=== PATIENT | female | born 1985 | race African-American/Black ===

== ENCOUNTER 2017-04-05 15:16 | Emergency (ER) | payer SELFPAY ==
[2017-04-05] MEDS ORDERED: Metoclopramide HCl 10 MG/2 ML VIAL ONE (18:24)
[2017-04-05] MEDS ORDERED: Dexamethasone 4 mg/ml Vial ONE (18:24)
[2017-04-05] MEDS ORDERED: diphenhydrAMINE 50 MG/ML VIAL ONE (18:24)
[2017-04-05] MEDS ORDERED: Ketorolac Tromethamine 30 MG/ML VIAL ONE (18:24)
--- NOTE | 2017-04-05 18:39 | CT ---
CT BRAIN WITHOUT CONTRAST: History: Headache, photophobia. FINDINGS: No evidence of infarct, hemorrhage, midline shift or abnormal extraaxial fluid collections are seen. The ventricular size is normal and the basilar cisterns patent. The bony calvarium is intact. The lef t paranasal sinus and mastoid air cells are well aerated. IMPRESSION: No CT evidence of acute intracranial process. POS: [facility]
== END 2017-04-05 19:30 | disposition home or self-care (01) ==
LOC: ERS 15:16
DX: R51 Headache (principal); I10 Essential (primary) hypertension; F17.210 Nicotine dependence, cigarettes, uncomplicated
CPT/HCPCS: 70450; 96365; 96375; J1100; J1200; J1885; J2765

== ENCOUNTER 2019-02-17 15:32 | Inpatient (IN) | payer SELFPAY ==
[~2019-02-17 15:32] MED LIST: Ketorolac Tromethamine 30 MG/ML VIAL ONE; Labetalol HCl 100 MG/20 ML VIAL ONE; Lidocaine 1% PF 5 ML VIAL ONE; Ondansetron PF 4 MG/2 ML Vial ONE; PROPOFOL 200 MG/20 ML VIAL ONE; Succinylcholine Chloride 20 MG/ML 10 ml SYRINGE FS ONE
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
[2019-02-17] MEDS ORDERED: Morphine 4 MG/ML VIAL ONE (17:25)
[2019-02-17] MEDS ORDERED: Adacel (T-DAP) 0.5 ML SYRINGE ONE (17:25)
[2019-02-17 17:51] LABS: #Monocytes 0.8 thou/uL (0.11-0.59); #Neutrophils 8.7 thou/uL (1.40-6.50); %Basophils 0.1 % (0.0-1.0); %Eosinophils 0.2 % (0.0-10.0); %Lymphocytes 23.9 % (21.0-51.0); %Monocytes 6.4 % (0.0-10.0); %Neutrophils 69.4 % (42.0-75.0); Hemoglobin 13.6 g/dL (12.0-16.0); Mean Corpuscular HGB CONC 34.1 g/dL (32.0-36.0); Mean Corpuscular Hemoglobin 29.7 pg (27.0-31.0); Mean Corpuscular Volume 87.1 fL (78.0-98.0); Mean Platelet Volume 11.1 fL (7.4-10.4); Platelet Count 190 thou/uL (130-400); RBC Distribution Width 12.9 % (11.5-14.5); Red Blood Cell (RBC) Count 4.59 mill/uL (4.20-5.40); White Blood Cell (WBC) Count 12.5 thou/uL (4.8-10.8)
[2019-02-17] MEDS ORDERED: Ampicillin/Sulbactam 1.5 GM in Sodium Chloride 0.9% 100 ML IVPB SCH (18:00)
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
[2019-02-17 18:28] LABS: ALT (SGPT) 89 U/L (8-55); AST (SGOT) 73 U/L (5-34); Albumin 4.3 g/dL (3.5-5.0); Alkaline Phosphatase 87 U/L (40-110); Anion Gap 13 mmol/L (10-20); BUN (Urea Nitrogen) 7 mg/dL (7.0-18.7); Bilirubin, Total 0.6 mg/dL (0.2-1.2); CRP (Inflammatory) 1.44 mg/dL (= or < 0.5); Calc. Creatinine Clearance 0 mL/min (70-130); Calcium 9.6 mg/dL (7.8-10.44); Carbon Dioxide 27 mmol/L (22-29); Chloride 102 mmol/L (98-107); Estimated GFR-MDRD Greater than 90; Globulin 4.3 g/dL (2.4-3.5); Glucose 105 mg/dL (70-105); Potassium 3.1 mmol/L (3.5-5.1); Protein, Total 8.6 g/dL (6.0-8.3); Sodium 139 mmol/L (136-145)
[2019-02-17] MEDS ORDERED: hydrALAZINE 20 MG/ML VIAL ONE (19:21)
[2019-02-17] MEDS ORDERED: Promethazine HCl 25 MG/ML VIAL SLOW IVP PRN (19:39)
[2019-02-17] MEDS ORDERED: Ondansetron HCl/PF 4 MG/2 ML Vial IVP PRN (19:39)
[2019-02-17] MEDS ORDERED: Promethazine HCl 25 MG/ML VIAL IM PRN ×2 (19:39→21:50)
[2019-02-17] MEDS ORDERED: Fentanyl 100 MCG/2 ML VIAL ONE ×2 (19:41→21:02)
[2019-02-17] MEDS ORDERED: Ondansetron PF 4 MG/2 ML Vial IVP PRN (21:50)
[2019-02-17] MEDS ORDERED: Fentanyl 100 MCG/2 ML VIAL SLOW IVP PRN (21:50)
[2019-02-17] MEDS ORDERED: HYDROcodone/Acetaminophen 5/325 mg Tablet PO PRN ×2 (21:50)
[2019-02-17] MEDS ORDERED: Morphine 2 MG/ML SYRINGE SLOW IVP PRN (21:50)
[2019-02-17] MEDS ORDERED: traMADol HCl 50 MG TAB PO PRN ×2 (21:50)
[2019-02-17] MEDS ORDERED: Bisacodyl 10 MG SUPP PR PRN (21:50)
[2019-02-17] MEDS ORDERED: TETANUS AND DIPHTHERIA TOX/PF 0.5 ML DISP.SYRIN IM SCH (21:50)
[2019-02-17] MEDS ORDERED: Acetaminophen 325 MG TAB PO PRN (21:50)
[2019-02-17] MEDS ORDERED: Milk Of Magnesia 30 ML UDCUP PO PRN (21:50)
[2019-02-17] MEDS ORDERED: hydrALAZINE 20 MG/ML VIAL SLOW IVP PRN (21:54)
[2019-02-17] MEDS: Morphine 4 MG/ML VIAL SLOW IVP PRN (22:34)
[2019-02-17] MEDS: Ketorolac Tromethamine 30 MG/ML VIAL IVP SCH (23:35)
[2019-02-17] MEDS: Ampicillin/Sulbactam 3 GM, Admixture Fee 1 EACH in Sodium Chloride 0.9% 100 ML IVPB SCH (23:36)
[2019-02-18 00:49] VITALS: BMI 38.8
[2019-02-18] MEDS: Ketorolac Tromethamine 30 MG/ML VIAL IVP SCH ×4 (05:50→23:21)
[2019-02-18] MEDS: Ampicillin/Sulbactam 3 GM, Admixture Fee 1 EACH in Sodium Chloride 0.9% 100 ML IVPB SCH ×3 (05:51→18:30)
[2019-02-18 08:53] LABS: Anion Gap 15 mmol/L (10-20); BUN (Urea Nitrogen) 5 mg/dL (7.0-18.7); Calc. Creatinine Clearance 172 mL/min (70-130); Calcium 8.8 mg/dL (7.8-10.44); Carbon Dioxide 23 mmol/L (22-29); Chloride 105 mmol/L (98-107); Estimated GFR-MDRD Greater than 90; Glucose 90 mg/dL (70-105); Magnesium 1.8 mg/dL (1.6-2.6); Potassium 3.6 mmol/L (3.5-5.1); Sodium 139 mmol/L (136-145)
[2019-02-18] MEDS: Lisinopril 10 MG TAB PO SCH ×2 (08:54→21:12)
[2019-02-18] MEDS ORDERED: Amoxicillin/Potassium Clav 875 MG TAB PO SCH (09:00)
[2019-02-18] MEDS ORDERED: NIFEdipine XL 30 MG TAB PO SCH (09:00)
[2019-02-18] MEDS: cloNIDine 0.1 MG TAB PO PRN ×2 (12:41→23:22)
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
[2019-02-18] MEDS: Morphine 4 MG/ML VIAL SLOW IVP PRN (16:33)
[2019-02-18] MEDS ORDERED: Polyethylene Glycol 3350 17 GM Packet PO PRN (16:51)
[2019-02-18] MEDS: Senokot S 8.6-50 MG TAB PO SCH (21:10)
[2019-02-18] MEDS: NIFEdipine XL 30 MG TAB PO SCH (21:10)
--- NOTE | 2019-02-19 06:27 | PDOC.HOSPP ---
- Subjective Encounter Date: 02/18/19 Encounter Time: 14:00 Subjective: Patient seen and examined for med mngt. Med noncompliant. No CP/SOB. No new complaints. No overnight events - Objective Vital Signs & Weight: Vital Signs (12 hours) Temp Pulse Resp BP BP BP Pulse Ox 02/19/19 03:19 98.3 F 67 16 157/84 H 96 02/19/19 00:30 153/87 H 02/18/19 23:22 194/94 H 02/18/19 23:16 98.5 F 71 16 194/94 H 97 02/18/19 21:12 195/102 H 02/18/19 21:10 69 02/18/19 20:30 98.6 F 69 16 189/91 H 99 Weight Weight 212 lb 8 oz I&O: 02/17/19 02/18/19 02/19/19 06:59 06:59 06:59 Intake Total 460 780 Balance 460 780 Result Diagrams: 02/17/19 17:30 02/18/19 07:28 Additional Labs: Laboratory Tests 02/17/19 17:30 Potassium 3.1 L Hospitalist ROS - Review of Systems Respiratory: denies: cough, dry, shortness of breath, hemoptysis, SOB with excertion, pleuritic pain, sputum, wheezing, other Cardiovascular: denies: chest pain, palpitations, orthopnea, paroxysmal noc. dyspnea, edema, light headedness, other - Medication Medications: Active Medications Generic Name Dose Route Start Last Admin Trade Name Freq PRN Reason Stop Dose Admin Hydrocodone Bitart/Acetaminophen 2 tab 02/17/19 21:50 02/19/19 06:03 [place] 5/325 PO 2 tab Q4H PRN Administration Severe Pain (7-10) Clonidine 0.1 mg 02/18/19 08:15 02/18/19 23:22 Catapres PO 0.1 mg Q4H PRN Administration SBP Greater Than 180 Hydralazine HCl 10 mg 02/17/19 21:54 02/17/19 23:47 Apresoline SLOW IVP 10 mg Q4H PRN Administration SBP Greater Than 180 Morphine Sulfate 4 mg 02/17/19 21:50 02/18/19 16:33 Morphine SLOW IVP 4 mg Q2H PRN Administration Severe Pain (7-10) Nifedipine 30 mg 02/18/19 21:00 02/18/19 21:10 Procardia Xl PO 30 mg BID MIAH Administration Promethazine HCl 12.5 mg 02/17/19 21:50 02/18/19 20:06 Phenergan IM 12.5 mg Q4H PRN Administration Nausea Senna/Docusate Sodium 1 tab 02/18/19 21:00 02/18/19 21:10 Senokot S PO 1 tab BID MIAH Administration Sodium Chloride 10 ml 02/17/19 21:50 02/18/19 16:36 Flush - Normal Saline IVF 10 ml PRN PRN Administration Saline Flush - Exam General Appearance: NAD Neck: supple, no JVD Heart: RRR, no gallops, no rubs Respiratory: no wheezes, no rales, no ronchi Gastrointestinal: soft, non-tender, normal bowel sounds Extremities: no edema Hosp A/P - Plan DVT proph w/SCDs HTN - uncontrolled Obesity BMI 38.9 Hypokalemia Med noncompliant PLAN: Add Procardia XL Add Lisinopril HCTZ Clonidine PRN Urine drug screen Counselled on med compliance/lifestyle changes Consult CM for med assist Will follow
[2019-02-19 07:16] LABS: Amphetamine Not Detected (NotDetected); Barbiturates Screen Not Detected (NotDetected); Benzodiazepine Screen Not Detected (NotDetected); Cocaine Metabolite Screen Not Detected (NotDetected); Medtox Control Line Valid? VALID (VALID); Medtox Reader # READER 4; Methadone Not Detected (NotDetected); Methamphetamine Not Detected (NotDetected); Opiate Screen Not Detected (NotDetected); Oxycodone Screen Not Detected (NotDetected); Phencyclidine (PCP) Not Detected (NotDetected); THC/Cannabinoid Screen Detected (NotDetected); Tricyclic Screen Not Detected (NotDetected)
[2019-02-19 07:42] VITALS: TEMP 98.1
[2019-02-19] MEDS: Senokot S 8.6-50 MG TAB PO SCH (08:01)
[2019-02-19] MEDS: NIFEdipine XL 30 MG TAB PO SCH (08:02)
[2019-02-19] MEDS ORDERED: Amoxicillin/Potassium Clav 875 MG TAB PO SCH (09:00)
[2019-02-19] MEDS ORDERED: Lisinopril/Hydrochlorothiazide 20/25 mg Tablet PO SCH (09:00)
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
[2019-02-19] MEDS: Morphine 4 MG/ML VIAL SLOW IVP PRN (10:33)
[2019-02-19 12:05] VITALS: BP 137/80
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
== END 2019-02-19 12:12 | disposition home or self-care (01) | DRG 514 ==
LOC: ERS 15:32 → SDC/OP 20:47 → SURG B 21:18
PROVIDERS: ADMIT Orthopaedic Surgery; ATTEND Orthopaedic Surgery
PROC: 0L970ZZ Drainage of Right Hand Tendon, Open Approach (ICD-10-PCS; principal; 2019-02-17)
DX: M65.141 Other infective (teno)synovitis, right hand (principal); S61.252A Open bite of right middle finger without damage to nail, initial encounter; Y04.1XXA Assault by human bite, initial encounter; I10 Essential (primary) hypertension; F17.200 Nicotine dependence, unspecified, uncomplicated; Z79.899 Other long term (current) drug therapy
CPT/HCPCS: 36415; 80048; 80053; 80306; 83735; 85025; 85652; 86140; 87070; 87077; 87186; 87205; 90471; 90715; 93005; 96365; 96375; J0295; J0360; J1885; J2001; J2270; J2405; J2550; J2704; J3010; J3490

== ENCOUNTER 2019-08-27 10:40 | Emergency (ER) | payer SELFPAY ==
[2019-08-27] MEDS ORDERED: Lidocaine 1% PF 5 ML VIAL ONE (10:55)
[2019-08-27] MEDS ORDERED: Azithromycin 250 MG TAB ONE (10:55)
[2019-08-27] MEDS ORDERED: cefTRIAXone\\ROCEPHIN 250 MG VIAL ONE (10:55)
== END 2019-08-27 12:33 | disposition home or self-care (01) ==
LOC: ER/OP 10:40
DX: Z79.2 Long term (current) use of antibiotics (principal); A64 Unspecified sexually transmitted disease
CPT/HCPCS: 96372; J0696; J2001

== ENCOUNTER 2020-08-03 10:34 | Emergency (ER) | payer OTHER, SELFPAY ==
[2020-08-03] MEDS ORDERED: cloNIDine 0.1 MG TAB ONE (11:05)
[2020-08-03] MEDS ORDERED: Ketorolac Tromethamine 30 MG/ML VIAL ONE (11:05)
== END 2020-08-03 10:48 | disposition home or self-care (01) ==
LOC: ERS 10:34
DX: S39.012A Strain of muscle, fascia and tendon of lower back, initial encounter (principal); I10 Essential (primary) hypertension; F17.210 Nicotine dependence, cigarettes, uncomplicated; V89.2XXA Person injured in unspecified motor-vehicle accident, traffic, initial encounter
CPT/HCPCS: 96372; 99283; J1885

== ENCOUNTER 2021-05-04 18:35 | Inpatient (IN) | payer SELFPAY ==
[2021-05-04 19:13] LABS: #Basophils 0.1 thou/uL (0.0-0.2); #Monocytes 0.8 thou/uL (0.11-0.59); #Neutrophils 6.2 thou/uL (1.40-6.50); %Basophils 0.9 % (0.0-1.0); %Eosinophils 0.3 % (0.0-10.0); %Lymphocytes 22.2 % (21.0-51.0); %Monocytes 8.7 % (0.0-10.0); Hemoglobin 13.4 g/dL (12.0-16.0); Mean Corpuscular HGB CONC 32.9 g/dL (32.0-36.0); Mean Corpuscular Hemoglobin 28.8 pg (27.0-31.0); Mean Corpuscular Volume 87.4 fL (78.0-98.0); RBC Distribution Width 12.9 % (11.5-14.5); Red Blood Cell (RBC) Count 4.65 mill/uL (4.20-5.40)
[2021-05-04 19:26] LABS: BHCG - Serum Negative (NEGATIVE); Pregs Control Background? CLEAR/WHITE (CLR/WHITE); Pregs Control Bar Appear? YES (CONTROL BAR)
[2021-05-04 19:30] LABS: ALT (SGPT) 9 U/L (8-55); AST (SGOT) 20 U/L (5-34); Albumin 4.5 g/dL (3.5-5.0); Alkaline Phosphatase 75 U/L (40-110); Anion Gap 17 mmol/L (10-20); BUN (Urea Nitrogen) 11 mg/dL (7.0-18.7); Calc. Creatinine Clearance 0 mL/min (70-130); Calcium 10.1 mg/dL (7.8-10.44); Carbon Dioxide 25 mmol/L (22-29); Chloride 100 mmol/L (98-107); Globulin 5.1 g/dL (2.4-3.5); Glucose 90 mg/dL (70-105); Lipase 22 U/L (8-78); Protein, Total 9.6 g/dL (6.0-8.3); Sodium 139 mmol/L (136-145)
[2021-05-04 19:34] LABS: Potassium 2.7 mmol/L (3.5-5.1)
[2021-05-04 19:49] LABS: CKMB 1.3 ng/mL (0-6.6)
[2021-05-04 19:51] LABS: Large Platelets SLIGHT; MDiff Complete? YES; Platelet Count 134 thou/uL (130-400); Platelet Morphology Comment Appears Adequate; RBC Morphology Normal
[2021-05-04] MEDS ORDERED: niCARdipine 25 MG/10 ML VIAL ONE ×3 (19:53→23:45)
[2021-05-04] MEDS ORDERED: Potassium Chloride 20 MEQ TAB ONE (19:53)
[2021-05-04] MEDS ORDERED: Magnesium 2 GM/50 ML BAG (IN WATER) ONE (19:53)
[2021-05-04 20:48] LABS: Bacteria/HPF None Seen HPF (None Seen); Bilirubin Negative (Negative); Blood, Urine Negative (Negative); Clarity Clear (Clear); Glucose, Urine (Dipstick) Normal (Negative); Ketone, Urine Negative (Negative); Leukocyte Negative Leu/uL (Negative); Nitrite Negative (Negative); Protein, Urine (Dipstick) 30 mg/dL (Neg-Trace); RBC/HPF 0-3 HPF (0-3); Specific Gravity, Urine 1.004 (1.002-1.036); Squamous Epithelial 0-3 HPF (0-3); Urobilinogen Normal mg/dL (Less than 2); WBC/HPF 0-3 HPF (0-3); pH, Urine 6.5 (5.0-9.0)
[2021-05-04] MEDS ORDERED: Labetalol HCl 100 MG/20 ML VIAL ONE (23:17)
[2021-05-04] MEDS ORDERED: Labetalol HCl 100 MG/20 ML VIAL SLOW IVP PRN (23:43)
[2021-05-04] MEDS ORDERED: Acetaminophen 325 MG TAB PO PRN (23:43)
[2021-05-04] MEDS ORDERED: Dextrose 50% Abboject 50 ML SYRINGE SLOW IVP PRN (23:54)
[2021-05-04] MEDS ORDERED: Dextrose 5% in Water 1,000 ML IV PRN (23:54)
[2021-05-04] MEDS ORDERED: HumaLOG 300 UNITS/3 ML VIAL SC PRN ×2 (23:54)
[2021-05-05 00:32] LABS: Troponin I 0.238 ng/mL (< 0.028)
[2021-05-05] MEDS ORDERED: niCARdipine 25 MG/10 ML VIAL ONE (04:41)
[2021-05-05 06:18] LABS: Anion Gap 16 mmol/L (10-20); BUN (Urea Nitrogen) 8 mg/dL (7.0-18.7); Calc. Creatinine Clearance 0 mL/min (70-130); Calcium 9.5 mg/dL (7.8-10.44); Carbon Dioxide 23 mmol/L (22-29); Chloride 104 mmol/L (98-107); Cholesterol 196 mg/dl (< 200 Desired); Glucose 133 mg/dL (70-105); HDL Cholesterol 39 mg/dL (>60 Neg Risk); Hemoglobin A1c 5.1 % (4.0-6.0); LDL Cholesterol, Calculated 140 mg/dL; Magnesium 1.9 mg/dL (1.6-2.6); Sodium 140 mmol/L (136-145); Triglycerides 85 mg/dL (Less than 150)
[2021-05-05] MEDS: Famotidine 20 MG TAB PO SCH ×2 (08:50→20:53)
[2021-05-05] MEDS: niCARdipine 25 MG in Sodium Chloride 0.9% 250 ML 250 ML IVPB SCH ×4 (08:50→18:44)
[2021-05-05] MEDS: Enoxaparin Sodium 40 MG/0.4 ML SYRINGE SC SCH (08:50)
[2021-05-05 08:55] LABS: Troponin I 0.091 ng/mL (< 0.028)
[2021-05-05 09:14] VITALS: BMI 32.3
[2021-05-05 09:56] LABS: #Basophils 0.1 thou/uL (0.0-0.2); #Lymphocytes 1.8 thou/uL (1.20-3.40); #Monocytes 0.7 thou/uL (0.11-0.59); #Neutrophils 6.7 thou/uL (1.40-6.50); %Basophils 0.8 % (0.0-1.0); %Eosinophils 0.3 % (0.0-10.0); %Lymphocytes 19.4 % (21.0-51.0); %Monocytes 7.2 % (0.0-10.0); %Neutrophils 72.3 % (42.0-75.0); Large Platelets MODERATE; MDiff Complete? YES; Mean Corpuscular HGB CONC 34.4 g/dL (32.0-36.0); Mean Corpuscular Hemoglobin 30.1 pg (27.0-31.0); Mean Corpuscular Volume 87.3 fL (78.0-98.0); Mean Platelet Volume 11.8 fL (7.4-10.4); Platelet Count 122 thou/uL (130-400); Platelet Morphology Comment Appears Decreased; Polychromasia SLIGHT = 2-3 cells (100X) (0-2/hpf); RBC Distribution Width 13.1 % (11.5-14.5); Red Blood Cell (RBC) Count 4.33 mill/uL (4.20-5.40); White Blood Cell (WBC) Count 9.3 thou/uL (4.8-10.8)
[2021-05-05] MEDS ORDERED: Potassium Chloride 20 MEQ TAB PO SCH (10:00)
[2021-05-05] MEDS ORDERED: Lisinopril 10 MG TAB PO SCH (10:15)
[2021-05-05] MEDS ORDERED: Carvedilol 6.25 MG TAB PO SCH ×2 (10:15→21:00)
[2021-05-05] MEDS ORDERED: NIFEdipine XL 30 MG TAB PO SCH ×2 (10:15→21:00)
[2021-05-05] MEDS ORDERED: Ondansetron PF 4 MG/2 ML Vial IVP PRN (10:44)
[2021-05-05] MEDS ORDERED: Cepastat Lozenges 1 LOZ PO PRN (10:44)
[2021-05-05] MEDS ORDERED: GUAIFENESIN SF SOLN 200 MG/10 ML UDCUP PO PRN (10:44)
[2021-05-05] MEDS ORDERED: Ondansetron ODT 4 MG TAB PO PRN (10:44)
[2021-05-05] MEDS ORDERED: Calcium Carbonate 500 MG ChewTAB PO PRN (10:44)
[2021-05-05] MEDS ORDERED: Zolpidem Tartrate 5 MG TAB PO PRN (10:44)
[2021-05-05] MEDS ORDERED: Loperamide HCl 2 MG CAP PO PRN (10:44)
[2021-05-05] MEDS ORDERED: HYDROcodone/Acetaminophen 5/325 mg Tablet PO PRN (10:44)
[2021-05-05] MEDS ORDERED: Loratadine 10 MG TAB PO PRN (10:44)
[2021-05-05] MEDS ORDERED: Senokot S 8.6-50 MG TAB PO PRN (10:44)
[2021-05-05 10:56] LABS: Amphetamine Not Detected (NotDetected); Barbiturates Screen Not Detected (NotDetected); Benzodiazepine Screen Not Detected (NotDetected); Cocaine Metabolite Screen Not Detected (NotDetected); Methadone Not Detected (NotDetected); Methamphetamine Not Detected (NotDetected); Opiate Screen Not Detected (NotDetected); Oxycodone Screen Not Detected (NotDetected); Phencyclidine (PCP) Not Detected (NotDetected); THC/Cannabinoid Screen Detected (NotDetected); Tricyclic Screen Not Detected (NotDetected)
[2021-05-05] MEDS ORDERED: Magnevist 469MG/ML 20 ML VIAL ONE (10:59)
[2021-05-05 14:41] LABS: SARS-CoV-2 PCR by NAA Not Detected (NotDetected)
[2021-05-06] MEDS: niCARdipine 25 MG in Sodium Chloride 0.9% 250 ML 250 ML IVPB SCH ×2 (00:28→03:09)
[2021-05-06 04:24] LABS: #Lymphocytes 1.9 thou/uL (1.20-3.40); #Monocytes 0.6 thou/uL (0.11-0.59); #Neutrophils 6.3 thou/uL (1.40-6.50); %Basophils 0.2 % (0.0-1.0); %Eosinophils 0.5 % (0.0-10.0); %Lymphocytes 21.5 % (21.0-51.0); %Monocytes 6.8 % (0.0-10.0); %Neutrophils 71.1 % (42.0-75.0); Hemoglobin 14.6 g/dL (12.0-16.0); Mean Corpuscular HGB CONC 33.5 g/dL (32.0-36.0); Mean Corpuscular Hemoglobin 29.1 pg (27.0-31.0); Mean Platelet Volume 11.1 fL (7.4-10.4); Platelet Count 140 thou/uL (130-400); Platelet Morphology Comment Appears Adequate; RBC Distribution Width 13.1 % (11.5-14.5); RBC Morphology Normal; Red Blood Cell (RBC) Count 5.02 mill/uL (4.20-5.40); White Blood Cell (WBC) Count 8.8 thou/uL (4.8-10.8)
[2021-05-06 04:31] LABS: Anion Gap 11 mmol/L (10-20); BUN (Urea Nitrogen) 8 mg/dL (7.0-18.7); Calc. Creatinine Clearance 87 mL/min (70-130); Calcium 9.7 mg/dL (7.8-10.44); Carbon Dioxide 26 mmol/L (22-29); Chloride 104 mmol/L (98-107); Cholesterol 215 mg/dl (< 200 Desired); Glucose 107 mg/dL (70-105); HDL Cholesterol 36 mg/dL (>60 Neg Risk); LDL Cholesterol, Calculated 154 mg/dL; Magnesium 1.7 mg/dL (1.6-2.6); Sodium 138 mmol/L (136-145); Triglycerides 124 mg/dL (Less than 150)
[2021-05-06 05:36] LABS: Hemoglobin A1c 5.1 % (4.0-6.0)
[2021-05-06] MEDS ORDERED: niCARdipine 50 MG in Sodium Chloride 0.9% 250 ML 230 ML IVPB SCH (06:45)
[2021-05-06] MEDS: Famotidine 20 MG TAB PO SCH ×2 (08:23→20:13)
[2021-05-06] MEDS: Enoxaparin Sodium 40 MG/0.4 ML SYRINGE SC SCH (08:24)
[2021-05-06] MEDS ORDERED: Potassium Chloride 20 MEQ TAB PO SCH (08:30)
[2021-05-06] MEDS: Labetalol HCl 100 MG/20 ML VIAL SLOW IVP PRN ×4 (08:34→17:48)
[2021-05-06] MEDS ORDERED: Lisinopril 10 MG TAB PO SCH ×2 (09:00→09:15)
[2021-05-06] MEDS ORDERED: Amlodipine 10 MG TAB PO SCH (09:15)
[2021-05-06] MEDS: hydrALAZINE 20 MG/ML VIAL SLOW IVP PRN (13:32)
[2021-05-07] MEDS: Labetalol HCl 100 MG/20 ML VIAL SLOW IVP PRN ×3 (04:40→08:44)
[2021-05-07 05:33] LABS: #Lymphocytes 1.5 thou/uL (1.20-3.40); #Monocytes 0.8 thou/uL (0.11-0.59); #Neutrophils 5.7 thou/uL (1.40-6.50); %Basophils 0.1 % (0.0-1.0); %Eosinophils 0.1 % (0.0-10.0); %Monocytes 9.9 % (0.0-10.0); %Neutrophils 70.8 % (42.0-75.0); Hemoglobin 12.3 g/dL (12.0-16.0); Mean Corpuscular Hemoglobin 28.7 pg (27.0-31.0); Mean Corpuscular Volume 89.9 fL (78.0-98.0); Mean Platelet Volume 11.3 fL (7.4-10.4); Platelet Count 137 thou/uL (130-400); RBC Distribution Width 13.2 % (11.5-14.5); Red Blood Cell (RBC) Count 4.26 mill/uL (4.20-5.40)
[2021-05-07 05:44] LABS: Anion Gap 14 mmol/L (10-20); BUN (Urea Nitrogen) 13 mg/dL (7.0-18.7); Calc. Creatinine Clearance 83 mL/min (70-130); Calcium 9.5 mg/dL (7.8-10.44); Carbon Dioxide 22 mmol/L (22-29); Chloride 104 mmol/L (98-107); Glucose 108 mg/dL (70-105); Magnesium 1.6 mg/dL (1.6-2.6); Potassium 3.1 mmol/L (3.5-5.1); Sodium 137 mmol/L (136-145)
[2021-05-07] MEDS ORDERED: Potassium Chloride 20 MEQ TAB PO SCH (07:30)
[2021-05-07] MEDS: Lisinopril 10 MG TAB PO SCH (08:43)
[2021-05-07] MEDS: Amlodipine 10 MG TAB PO SCH (08:43)
[2021-05-07] MEDS: Famotidine 20 MG TAB PO SCH ×2 (08:43→20:10)
[2021-05-07] MEDS: Enoxaparin Sodium 40 MG/0.4 ML SYRINGE SC SCH (08:44)
[2021-05-07] MEDS ORDERED: Spironolactone 25 MG TAB PO SCH (10:45)
[2021-05-07] MEDS ORDERED: Carvedilol 6.25 MG TAB PO SCH ×2 (10:45)
[2021-05-07] MEDS: Carvedilol 6.25 MG TAB PO SCH (20:10)
[2021-05-07] MEDS: hydrALAZINE 20 MG/ML VIAL SLOW IVP PRN (23:50)
[2021-05-08] MEDS: Lisinopril 10 MG TAB PO SCH (08:17)
[2021-05-08] MEDS: Enoxaparin Sodium 40 MG/0.4 ML SYRINGE SC SCH (08:17)
[2021-05-08] MEDS: Carvedilol 6.25 MG TAB PO SCH ×2 (08:18→21:36)
[2021-05-08] MEDS: Amlodipine 10 MG TAB PO SCH (08:18)
[2021-05-08] MEDS: Spironolactone 25 MG TAB PO SCH (08:18)
[2021-05-08] MEDS: Famotidine 20 MG TAB PO SCH ×2 (08:18→21:36)
[2021-05-08] MEDS: Labetalol HCl 100 MG/20 ML VIAL SLOW IVP PRN (11:33)
[2021-05-08] MEDS: hydrALAZINE 20 MG/ML VIAL SLOW IVP PRN ×2 (15:55→23:13)
[2021-05-09 08:00] VITALS: BP 191/99; TEMP 98.5
[2021-05-09] MEDS ORDERED: Carvedilol 6.25 MG TAB PO SCH (08:00)
[2021-05-09] MEDS: Spironolactone 25 MG TAB PO SCH (08:11)
[2021-05-09] MEDS: Famotidine 20 MG TAB PO SCH (08:11)
[2021-05-09] MEDS: Enoxaparin Sodium 40 MG/0.4 ML SYRINGE SC SCH (08:11)
[2021-05-09] MEDS ORDERED: NIFEdipine XL 30 MG TAB PO SCH (09:00)
[2021-05-09] MEDS ORDERED: hydrALAZINE 25 MG TAB PO SCH (09:00)
[2021-05-09] MEDS ORDERED: Lisinopril 20 MG TAB PO SCH (09:00)
[2021-05-11 16:16] LABS: Renin Activity 0.867 ng/mL/hr (0.167-5.380)
== END 2021-05-09 10:30 | disposition home or self-care (01) | DRG 280 ==
LOC: ERS 18:35 → CCU 23:16 → NEURO 05-06 17:32
PROVIDERS: ADMIT Internal Medicine; ATTEND Internal Medicine
DX: I16.1 Hypertensive emergency (principal); I67.83 Posterior reversible encephalopathy syndrome; I21.A1 Myocardial infarction type 2; N17.9 Acute kidney failure, unspecified; R93.0 Abnormal findings on diagnostic imaging of skull and head, not elsewhere classified; E87.6 Hypokalemia; I10 Essential (primary) hypertension; E11.9 Type 2 diabetes mellitus without complications; E66.9 Obesity, unspecified; F17.210 Nicotine dependence, cigarettes, uncomplicated; Z20.822 Contact with and (suspected) exposure to COVID-19; Z79.899 Other long term (current) drug therapy; Z98.890 Other specified postprocedural states; Z91.14 Patient's other noncompliance with medication regimen; Z68.31 Body mass index [BMI] 31.0-31.9, adult
CPT/HCPCS: 36415; 36416; 70450; 70553; 71045; 80048; 80053; 80061; 80306; 81003; 81015; 82088; 82553; 83036; 83690; 83735; 84244; 84443; 84484; 84703; 85025; 93005; 93306; 94760; A9579; J0360; J1650; J3475; J7050; U0003; U0005

== ENCOUNTER 2021-07-26 13:48 | Emergency (ER) | payer SELFPAY | END 2021-07-26 15:39 | disposition home or self-care (01) | LOC: ERS 13:48 | DX: G51.0 Bell's palsy (principal); F17.210 Nicotine dependence, cigarettes, uncomplicated; Z79.899 Other long term (current) drug therapy | CPT/HCPCS: 99284 ==

== ENCOUNTER 2021-10-12 13:05 | Emergency (ER) | payer SELFPAY ==
[2021-10-12] MEDS ORDERED: Nitroglycerin 2% Ointment 1 INCH/1 GM Packet ONE (13:43)
[2021-10-12] MEDS ORDERED: Ondansetron ODT 4 MG TAB ONE (13:50)
[2021-10-12] MEDS ORDERED: niCARdipine 25 MG/10 ML VIAL ONE (14:06)
[2021-10-12 14:22] LABS: #Lymphocytes 1.6 thou/uL (1.20-3.40); #Monocytes 0.6 thou/uL (0.11-0.59); #Neutrophils 9.6 thou/uL (1.40-6.50); %Basophils 0.1 % (0.0-1.0); %Lymphocytes 13.3 % (21.0-51.0); %Monocytes 5.1 % (0.0-10.0); %Neutrophils 81.5 % (42.0-75.0); BHCG - Serum Negative (NEGATIVE); Hemoglobin 14.5 g/dL (12.0-16.0); Mean Corpuscular HGB CONC 32.8 g/dL (32.0-36.0); Mean Corpuscular Hemoglobin 29.3 pg (27.0-31.0); Mean Corpuscular Volume 89.1 fL (78.0-98.0); Mean Platelet Volume 11.6 fL (7.4-10.4); Platelet Count 159 thou/uL (130-400); Pregs Control Background? CLEAR/WHITE (CLR/WHITE); Pregs Control Bar Appear? YES (CONTROL BAR); RBC Distribution Width 14.8 % (11.5-14.5); Red Blood Cell (RBC) Count 4.95 mill/uL (4.20-5.40); White Blood Cell (WBC) Count 11.8 thou/uL (4.8-10.8)
[2021-10-12 14:33] LABS: ALT (SGPT) 12 U/L (8-55); AST (SGOT) 21 U/L (5-34); Albumin 4.6 g/dL (3.5-5.0); Alkaline Phosphatase 87 U/L (40-110); Anion Gap 17 mmol/L (10-20); BUN (Urea Nitrogen) 10 mg/dL (7.0-18.7); Bilirubin, Total 1.2 mg/dL (0.2-1.2); Calc. Creatinine Clearance 0 mL/min (70-130); Calcium 10.1 mg/dL (7.8-10.44); Carbon Dioxide 22 mmol/L (22-29); Chloride 105 mmol/L (98-107); Estimated GFR 54; Glucose 164 mg/dL (70-105); Lipase 14 U/L (8-78); Protein, Total 9.6 g/dL (6.0-8.3); Sodium 141 mmol/L (136-145)
[2021-10-12 15:06] LABS: Bacteria/HPF None Seen HPF (None Seen); Bilirubin Negative (Negative); Blood, Urine 1+ (Negative); Clarity Clear (Clear); Glucose, Urine (Dipstick) 100 mg/dL (Negative); Ketone, Urine 20 mg/dL (Negative); Leukocyte Negative Leu/uL (Negative); Nitrite Negative (Negative); Protein, Urine (Dipstick) 200 mg/dL (Neg-Trace); RBC/HPF 0-3 HPF (0-3); Squamous Epithelial 0-3 HPF (0-3); Urobilinogen Normal mg/dL (Less than 2); WBC/HPF 0-3 HPF (0-3); pH, Urine 6.5 (5.0-9.0)
[2021-10-12 15:23] LABS: SARS-CoV-2 NAA Rapid Test Not Detected (NotDetected)
[2021-10-12] MEDS ORDERED: Ondansetron PF 4 MG/2 ML Vial ONE (16:53)
== END 2021-10-12 17:33 | disposition short-term general hospital (02) ==
LOC: ERS 13:05
DX: I16.1 Hypertensive emergency (principal); Z20.822 Contact with and (suspected) exposure to COVID-19; E11.9 Type 2 diabetes mellitus without complications; F17.210 Nicotine dependence, cigarettes, uncomplicated; Z79.899 Other long term (current) drug therapy
CPT/HCPCS: 70450; 71045; 80053; 81003; 81015; 83690; 84484; 84703; 85025; 93005; J2405; Q0162; U0002

== ENCOUNTER 2022-02-08 14:58 | Inpatient (IN) | payer SELFPAY ==
[~2022-02-08 14:58] MED LIST changes: +Iopamidol-370 76% 500 ML 1 ML ONE; -Ketorolac Tromethamine 30 MG/ML VIAL ONE; -Labetalol HCl 100 MG/20 ML VIAL ONE; -Lidocaine 1% PF 5 ML VIAL ONE; -Ondansetron PF 4 MG/2 ML Vial ONE; -PROPOFOL 200 MG/20 ML VIAL ONE; -Succinylcholine Chloride 20 MG/ML 10 ml SYRINGE FS ONE
[2022-02-08] MEDS ORDERED: Lorazepam 2 MG/ML VIAL ONE ×2 (15:18→15:35)
[2022-02-08] MEDS ORDERED: niCARdipine 25 MG/10 ML VIAL ONE ×3 (16:08→21:11)
[2022-02-08] MEDS ORDERED: levETIRAcetam 500 MG/5 ML VIAL ONE (16:19)
[2022-02-08 16:35] LABS: #Lymphocytes 0.8 thou/uL (1.20-3.40); #Monocytes 0.3 thou/uL (0.11-0.59); #Neutrophils 11.5 thou/uL (1.40-6.50); %Basophils 0.2 % (0.0-1.0); %Eosinophils 0.2 % (0.0-10.0); %Lymphocytes 6.5 % (21.0-51.0); %Neutrophils 91.1 % (42.0-75.0); Hemoglobin 13.8 g/dL (12.0-16.0); Mean Corpuscular HGB CONC 32.3 g/dL (32.0-36.0); Mean Corpuscular Hemoglobin 29.3 pg (27.0-31.0); Mean Corpuscular Volume 90.9 fl (78.0-98.0); Mean Platelet Volume 11.5 fL (7.4-10.4); Platelet Count 154 10x3/uL (130-400); RBC Distribution Width 13.7 % (11.5-14.5); Red Blood Cell (RBC) Count 4.69 mill/uL (4.20-5.40); White Blood Cell (WBC) Count 12.6 10x3/uL (4.8-10.8)
[2022-02-08 16:36] LABS: BHCG - Serum Negative (NEGATIVE); Pregs Control Bar Appear? YES (CONTROL BAR)
[2022-02-08 16:37] LABS: Pregs Control Background? CLEAR/WHITE (CLR/WHITE)
[2022-02-08 16:42] LABS: PTT 39.3 sec (22.9-36.1); Prothrombin Time 13.6 sec (12.0-14.7)
[2022-02-08 16:49] LABS: Acetaminophen Less than 10.0 mcg/mL (10.0-30.0); Alcohol Less than 10 mg/dL (Less than 10); Salicylate Less than 8.0 mg/dL (15.0-30.0)
[2022-02-08 16:50] LABS: ALT (SGPT) 25 U/L (8-55); AST (SGOT) 32 U/L (5-34); Albumin 4.2 g/dL (3.5-5.0); Alkaline Phosphatase 102 U/L (40-110); Anion Gap 17 mmol/L (10-20); BUN (Urea Nitrogen) 13 mg/dL (7.0-18.7); Bilirubin, Total 1.5 mg/dL (0.2-1.2); CK (CPK) 103 U/L (29-168); Calc. Creatinine Clearance 0 mL/min (70-130); Calcium 9.8 mg/dL (7.8-10.44); Carbon Dioxide 22 mmol/L (22-29); Chloride 100 mmol/L (98-107); Estimated GFR 52; Glucose 157 mg/dL (70-105); Potassium 3.6 mmol/L (3.5-5.1); Protein, Total 9.2 g/dL (6.0-8.3); Sodium 135 mmol/L (136-145)
[2022-02-08 17:26] LABS: Bacteria/HPF None Seen HPF (None Seen); Bilirubin Negative (Negative); Blood, Urine 1+ (Negative); Clarity Clear (Clear); Glucose, Urine (Dipstick) Normal (Negative); Ketone, Urine 20 mg/dL (Negative); Leukocyte Negative Leu/uL (Negative); Nitrite Negative (Negative); Protein, Urine (Dipstick) 200 mg/dL (Neg-Trace); RBC/HPF 0-3 HPF (0-3); Squamous Epithelial 0-3 HPF (0-3); Urobilinogen Normal mg/dL (Less than 2); WBC/HPF 0-3 HPF (0-3); pH, Urine 6.5 (5.0-9.0)
[2022-02-08 17:31] LABS: Amphetamine Not Detected (NotDetected); Barbiturates Screen Not Detected (NotDetected); Benzodiazepine Screen Detected (NotDetected); Cocaine Metabolite Screen Not Detected (NotDetected); Methadone Not Detected (NotDetected); Methamphetamine Not Detected (NotDetected); Opiate Screen Not Detected (NotDetected); Oxycodone Screen Not Detected (NotDetected); Phencyclidine (PCP) Not Detected (NotDetected); THC/Cannabinoid Screen Detected (NotDetected); Tricyclic Screen Not Detected (NotDetected)
[2022-02-08] MEDS ORDERED: Electrolyte Replacement Protocol 1 EACH IVPB ONE (18:15)
[2022-02-08] MEDS ORDERED: Lorazepam 2 MG/ML VIAL SLOW IVP PRN (18:15)
[2022-02-08] MEDS ORDERED: niCARdipine 25 MG in Sodium Chloride 0.9% 250 ML 250 ML IVPB PRN (18:15)
[2022-02-08] MEDS ORDERED: Electrolyte Replacement Protocol FS PRN (18:45)
[2022-02-08 19:21] LABS: Lactic Acid 0.8 mmol/L (0.5-2.2)
[2022-02-08 19:26] LABS: Magnesium 2.1 mg/dL (1.6-2.6)
[2022-02-08] MEDS: Dextrose 5 %-0.45 % NaCl 1,000 ML IV SCH (20:19)
[2022-02-08] MEDS: Heparin 5,000 UNITS/ML VIAL SC SCH (23:18)
[2022-02-08] MEDS: levETIRAcetam 500 MG/5 ML VIAL SLOW IVP SCH (23:18)
[2022-02-09] MEDS ORDERED: Labetalol HCl 100 MG TAB PO SCH (01:15)
[2022-02-09] MEDS: Dextrose 5 %-0.45 % NaCl 1,000 ML IV SCH (04:52)
[2022-02-09 05:32] LABS: Anion Gap 14 mmol/L (10-20); BUN (Urea Nitrogen) 15 mg/dL (7.0-18.7); Calc. Creatinine Clearance 75 mL/min (70-130); Calcium 8.9 mg/dL (7.8-10.44); Carbon Dioxide 22 mmol/L (22-29); Chloride 104 mmol/L (98-107); Estimated GFR 59; Glucose 119 mg/dL (70-105); Potassium 3.8 mmol/L (3.5-5.1); Sodium 136 mmol/L (136-145)
[2022-02-09 05:33] LABS: Hemoglobin 14.2 g/dL (12.0-16.0); Mean Corpuscular HGB CONC 32.9 g/dL (32.0-36.0); Mean Corpuscular Volume 91.2 fl (78.0-98.0); Mean Platelet Volume 11.9 fL (7.4-10.4); Platelet Count 131 10x3/uL (130-400); RBC Distribution Width 13.8 % (11.5-14.5); Red Blood Cell (RBC) Count 4.74 mill/uL (4.20-5.40); White Blood Cell (WBC) Count 11.6 10x3/uL (4.8-10.8)
[2022-02-09 05:34] LABS: #Lymphocytes 1.8 thou/uL (1.20-3.40); #Monocytes 1.2 thou/uL (0.11-0.59); #Neutrophils 8.6 thou/uL (1.40-6.50); %Basophils 0.2 % (0.0-1.0); %Eosinophils 0.2 % (0.0-10.0); %Lymphocytes 15.6 % (21.0-51.0); %Monocytes 10.4 % (0.0-10.0); %Neutrophils 73.7 % (42.0-75.0)
[2022-02-09 06:00] LABS: SARS-CoV-2 NAA Rapid Test Not Detected (NotDetected)
[2022-02-09] MEDS ORDERED: cloNIDine 0.2 MG TAB PO SCH (09:00)
[2022-02-09] MEDS: hydrALAZINE 25 MG TAB PO SCH ×3 (09:35→20:18)
[2022-02-09] MEDS: Losartan 25 MG TAB PO SCH (09:36)
[2022-02-09] MEDS: NIFEdipine XL 90 MG TAB PO SCH (09:36)
[2022-02-09] MEDS: Heparin 5,000 UNITS/ML VIAL SC SCH ×3 (09:56→20:16)
[2022-02-09] MEDS: levETIRAcetam 500 MG/5 ML VIAL SLOW IVP SCH (09:56)
[2022-02-09] MEDS: Metoprolol Tartrate 50 MG TAB PO SCH (20:18)
[2022-02-09] MEDS: levETIRAcetam 500 MG TAB PO SCH (20:19)
[2022-02-10 05:19] LABS: #Monocytes 0.9 thou/uL (0.11-0.59); #Neutrophils 5.8 thou/uL (1.40-6.50); %Basophils 0.1 % (0.0-1.0); %Eosinophils 0.1 % (0.0-10.0); %Lymphocytes 23.2 % (21.0-51.0); %Monocytes 10.3 % (0.0-10.0); %Neutrophils 66.2 % (42.0-75.0); Hemoglobin 12.5 g/dL (12.0-16.0); Mean Corpuscular HGB CONC 33.3 g/dL (32.0-36.0); Mean Corpuscular Hemoglobin 30.2 pg (27.0-31.0); Mean Corpuscular Volume 90.9 fl (78.0-98.0); Mean Platelet Volume 11.3 fL (7.4-10.4); Platelet Count 128 10x3/uL (130-400); RBC Distribution Width 13.7 % (11.5-14.5); Red Blood Cell (RBC) Count 4.14 mill/uL (4.20-5.40); White Blood Cell (WBC) Count 8.8 10x3/uL (4.8-10.8)
[2022-02-10 05:39] LABS: Anion Gap 12 mmol/L (10-20); BUN (Urea Nitrogen) 12 mg/dL (7.0-18.7); Calc. Creatinine Clearance 72 mL/min (70-130); Carbon Dioxide 22 mmol/L (22-29); Chloride 107 mmol/L (98-107); Estimated GFR 56; Glucose 88 mg/dL (70-105); Potassium 3.2 mmol/L (3.5-5.1); Sodium 138 mmol/L (136-145)
[2022-02-10] MEDS ORDERED: Potassium Chloride 20 MEQ TAB PO SCH (08:00)
[2022-02-10] MEDS ORDERED: Spironolactone 25 MG TAB PO SCH (09:00)
[2022-02-10] MEDS: Heparin 5,000 UNITS/ML VIAL SC SCH ×2 (09:28→16:29)
[2022-02-10] MEDS: NIFEdipine XL 90 MG TAB PO SCH (09:28)
[2022-02-10] MEDS: hydrALAZINE 25 MG TAB PO SCH ×2 (09:29→16:30)
[2022-02-10] MEDS: Losartan 25 MG TAB PO SCH (09:29)
[2022-02-10] MEDS: Metoprolol Tartrate 50 MG TAB PO SCH (09:29)
[2022-02-10] MEDS: levETIRAcetam 500 MG TAB PO SCH (09:29)
[2022-02-10 11:49] VITALS: TEMP 97.9
[2022-02-10 12:43] VITALS: BMI 31.6
[2022-02-10] MEDS ORDERED: hydrALAZINE 20 MG/ML VIAL SLOW IVP SCH (12:45)
[2022-02-10 13:51] VITALS: BP 167/96
== END 2022-02-10 16:30 | disposition home or self-care (01) | DRG 78 ==
LOC: ERS 14:58 → ERHOLD 17:22 → CCU 22:51 → NEURO 02-09 16:48
PROVIDERS: ADMIT Student in an Organized Health Care Education/Training Program; ATTEND Family Medicine
DX: I67.4 Hypertensive encephalopathy (principal); I16.1 Hypertensive emergency; N17.9 Acute kidney failure, unspecified; I42.9 Cardiomyopathy, unspecified; F17.210 Nicotine dependence, cigarettes, uncomplicated; E66.9 Obesity, unspecified; G93.89 Other specified disorders of brain; I12.9 Hypertensive chronic kidney disease with stage 1 through stage 4 chronic kidney disease, or unspecified chronic kidney disease; N18.30 Chronic kidney disease, stage 3 unspecified; E11.65 Type 2 diabetes mellitus with hyperglycemia; E11.22 Type 2 diabetes mellitus with diabetic chronic kidney disease; F19.90 Other psychoactive substance use, unspecified, uncomplicated; Z79.899 Other long term (current) drug therapy; Z68.31 Body mass index [BMI] 31.0-31.9, adult
CPT/HCPCS: 36415; 36416; 70450; 70496; 70498; 70553; 71045; 80048; 80053; 80306; 80307; 81003; 81015; 82550; 83605; 83735; 84146; 84443; 84484; 84703; 85025; 85610; 85730; 93005; 95712; 95819; 95957; 96374; 96375; J0360; J1644; J1953; J2060; J7042; J7050; Q9967; U0002

== ENCOUNTER 2022-09-12 12:45 | Inpatient (IN) | payer SELFPAY ==
[2022-09-12] MEDS ORDERED: Dicyclomine 20 MG/2 ML VIAL ONE (13:11)
[2022-09-12 14:48] LABS: Hemoglobin 13.6 g/dL (12.0-16.0); Mean Corpuscular HGB CONC 33.9 g/dL (32.0-36.0); Mean Corpuscular Hemoglobin 29.9 pg (27.0-31.0); Mean Corpuscular Volume 88.1 fl (78.0-98.0); Mean Platelet Volume 11.5 fL (7.4-10.4); Platelet Count 241 10x3/uL (130-400); RBC Distribution Width 12.8 % (11.5-14.5); Red Blood Cell (RBC) Count 4.55 mill/uL (4.20-5.40); White Blood Cell (WBC) Count 9.4 10x3/uL (4.8-10.8)
[2022-09-12 14:52] LABS: Delete Auto Diff?? YES; Manual Diff?? YES
[2022-09-12 15:09] LABS: BHCG - Serum Negative (NEGATIVE); Pregs Control Background? CLEAR/WHITE (CLR/WHITE); Pregs Control Bar Appear? YES (CONTROL BAR)
[2022-09-12 15:22] LABS: ALT (SGPT) 11 U/L (8-55); AST (SGOT) 27 U/L (5-34); Albumin 4.2 g/dL (3.5-5.0); Alkaline Phosphatase 99 U/L (40-110); Anion Gap 14 mmol/L (10-20); BUN (Urea Nitrogen) 15 mg/dL (7.0-18.7); Bilirubin, Total 0.4 mg/dL (0.2-1.2); Calc. Creatinine Clearance 0 mL/min (70-130); Calcium 10.5 mg/dL (7.8-10.44); Carbon Dioxide 21 mmol/L (22-29); Chloride 105 mmol/L (98-107); Estimated GFR 53; Globulin 5.3 g/dL (2.4-3.5); Glucose 99 mg/dL (70-105); Potassium 4.4 mmol/L (3.5-5.1); Protein, Total 9.5 g/dL (6.0-8.3); Sodium 136 mmol/L (136-145)
[2022-09-12] MEDS ORDERED: Ketorolac Tromethamine 30 MG/ML VIAL ONE (15:22)
[2022-09-12] MEDS ORDERED: Famotidine/PF 20 mg/2ml Vial ONE (15:22)
[2022-09-12 15:24] LABS: Band 7 % (5-11); CellaVision Operator ID LAB.KB; Large Platelets 14.9 % (0-5); Lymphocytes 3 % (21-51); Monocytes 3 % (0-10); Neutrophil 85 % (42-75); Platelet Adequacy Comment Platelets Normal; RBC Morphology Within Normal Limits; Reactive Lymphocytes 2 % (0-10); Total Cell Count 101
[2022-09-12 15:35] LABS: Bacteria/HPF None Seen HPF (None Seen); Bilirubin Negative (Negative); Blood, Urine Trace (Negative); CAUTI Indications for Culture Dysuria,urgency,freq; Clarity Turbid (Clear); Glucose, Urine (Dipstick) Normal (Negative); Ketone, Urine 20 mg/dL (Negative); Leukocyte Negative Leu/uL (Negative); Nitrite Negative (Negative); Protein, Urine (Dipstick) 100 mg/dL (Neg-Trace); RBC/HPF 0-3 HPF (0-3); Specific Gravity, Urine 1.023 (1.002-1.036); Urobilinogen Normal mg/dL (Less than 2); WBC/HPF 0-3 HPF (0-3); pH, Urine 5.5 (5.0-9.0)
[2022-09-12 15:37] LABS: Urine Culture Reflex No No
[2022-09-12] MEDS ORDERED: niCARdipine 25 MG/10 ML SDV ONE (15:56)
[2022-09-12] MEDS ORDERED: Aspirin Chewable 81 MG TAB ONE (16:02)
[2022-09-12] MEDS ORDERED: Acetaminophen 325 MG TAB PO PRN (16:52)
[2022-09-12] MEDS ORDERED: Bisacodyl 5 MG TAB PO PRN (16:52)
[2022-09-12] MEDS ORDERED: Bisacodyl 10 MG SUPP PR PRN (16:52)
[2022-09-12] MEDS ORDERED: Senokot S 8.6-50 MG TAB PO PRN (16:52)
[2022-09-12] MEDS ORDERED: Lactated Ringer's 1,000 ML IV SCH (17:15)
[2022-09-12] MEDS ORDERED: niCARdipine 25 MG in Sodium Chloride 0.9% 250 ML 250 ML IVPB SCH (17:15)
[2022-09-12 18:00] LABS: Amphetamine Not Detected (NotDetected); Barbiturates Screen Not Detected (NotDetected); Benzodiazepine Screen Not Detected (NotDetected); Cocaine Metabolite Screen Not Detected (NotDetected); Methadone Not Detected (NotDetected); Methamphetamine Not Detected (NotDetected); Opiate Screen Not Detected (NotDetected); Oxycodone Screen Not Detected (NotDetected); Phencyclidine (PCP) Not Detected (NotDetected); THC/Cannabinoid Screen Detected (NotDetected); Tricyclic Screen Not Detected (NotDetected)
[2022-09-12 19:52] LABS: Troponin I 0.331 ng/mL (< 0.028)
[2022-09-12] MEDS ORDERED: Famotidine 20 MG TAB ONE (20:21)
[2022-09-12] MEDS: Famotidine 20 MG TAB PO SCH (20:22)
[2022-09-12 20:55] LABS: Critical Call Chem Troponin I DECREASE
[2022-09-12 23:22] VITALS: BMI 30.3
[2022-09-13] MEDS ORDERED: hydrALAZINE 25 MG TAB PO SCH (00:30)
[2022-09-13 05:48] LABS: #Monocytes 1.1 thou/uL (0.11-0.59); #Neutrophils 5.3 thou/uL (1.40-6.50); %Lymphocytes 18.8 % (21.0-51.0); %Monocytes 13.7 % (0.0-10.0); %Neutrophils 67.2 % (42.0-75.0); Hemoglobin 11.6 g/dL (12.0-16.0); Mean Corpuscular HGB CONC 33.6 g/dL (32.0-36.0); Mean Corpuscular Hemoglobin 29.8 pg (27.0-31.0); Mean Corpuscular Volume 88.7 fl (78.0-98.0); Mean Platelet Volume 11.4 fL (7.4-10.4); Platelet Count 203 10x3/uL (130-400); RBC Distribution Width 12.8 % (11.5-14.5); Red Blood Cell (RBC) Count 3.89 mill/uL (4.20-5.40); White Blood Cell (WBC) Count 7.8 10x3/uL (4.8-10.8)
[2022-09-13 06:40] LABS: Anion Gap 12 mmol/L (10-20); BUN (Urea Nitrogen) 19 mg/dL (7.0-18.7); Calc. Creatinine Clearance 58 mL/min (70-130); Calcium 9.3 mg/dL (7.8-10.44); Carbon Dioxide 21 mmol/L (22-29); Chloride 105 mmol/L (98-107); Estimated GFR 43; Glucose 85 mg/dL (70-105); Potassium 3.8 mmol/L (3.5-5.1); Sodium 134 mmol/L (136-145)
[2022-09-13] MEDS ORDERED: Sodium Chloride 0.9% 1,000 ML IV SCH (08:15)
[2022-09-13] MEDS ORDERED: Labetalol HCl 100 MG TAB PO SCH (08:15)
[2022-09-13] MEDS: Famotidine 20 MG TAB PO SCH (08:44)
[2022-09-13] MEDS: hydrALAZINE 25 MG TAB PO SCH ×2 (08:45→14:54)
[2022-09-13] MEDS ORDERED: Losartan 25 MG TAB PO SCH (09:00)
[2022-09-13] MEDS ORDERED: NIFEdipine XL 90 MG TAB PO SCH (09:00)
[2022-09-13] MEDS ORDERED: Morphine 2 MG/ML VIAL SLOW IVP PRN (11:30)
[2022-09-13 12:15] VITALS: BP 154/84; TEMP 98.8
== END 2022-09-13 15:00 | disposition left against medical advice (07) | DRG 391 ==
LOC: ERS 12:45 → ERHOLD 16:51 → 2SW 23:02
PROVIDERS: ADMIT Hospitalist; ATTEND Internal Medicine
DX: A05.9 Bacterial foodborne intoxication, unspecified (principal); I21.A1 Myocardial infarction type 2; I16.1 Hypertensive emergency; E86.0 Dehydration; F17.210 Nicotine dependence, cigarettes, uncomplicated; K52.9 Noninfective gastroenteritis and colitis, unspecified; Z79.899 Other long term (current) drug therapy; Z86.73 Personal history of transient ischemic attack (TIA), and cerebral infarction without residual deficits
CPT/HCPCS: 36415; 70450; 71045; 80048; 80053; 80306; 81001; 82553; 84484; 84703; 85025; 93005; 93010; 94760; 96372; 96374; 96375; J1650; J1885; J7050; J7120; S0028

== ENCOUNTER 2023-10-05 15:18 | Emergency (ER) | payer OTHER, SELFPAY | END 2023-10-05 17:11 | disposition home or self-care (01) | LOC: ERS 15:18 | DX: M79.642 Pain in left hand (principal); I10 Essential (primary) hypertension; F17.210 Nicotine dependence, cigarettes, uncomplicated ==

== ENCOUNTER 2023-10-09 20:59 | Inpatient (IN) | payer OTHER ==
[2023-10-10 00:17] LABS: Bacteria/HPF None Seen HPF (None Seen); Bilirubin Negative (Negative); Blood, Urine Negative (Negative); CAUTI Indications for Culture Pelvic or flank pain; Clarity Turbid (Clear); Glucose, Urine (Dipstick) Normal (Negative); Ketone, Urine Negative (Negative); Leukocyte Negative Leu/uL (Negative); Nitrite Negative (Negative); Protein, Urine (Dipstick) 30 mg/dL (Neg-Trace); RBC/HPF 0-3 HPF (0-3); Specific Gravity, Urine 1.018 (1.002-1.036); Urobilinogen Normal mg/dL (Less than 2); WBC/HPF 0-3 HPF (0-3); pH, Urine 5.5 (5.0-9.0)
[2023-10-10 00:19] LABS: Pregnancy Test - Urine (BHCG) Negative (Negative); Pregu Control Background? CLEAR/WHITE (CLR/WHITE); Pregu Control Bar Appear? YES (CONTROL BAR); Specific Gravity 1.018 (1.002-1.036); Urine Culture Reflex No No
[2023-10-10] MEDS ORDERED: hydrALAZINE 20 MG/ML VIAL ONE (00:28)
[2023-10-10 00:49] LABS: #Basophils Less than 0.03 10x3/uL (0.0-0.2); #Eosinphils Less than 0.03 10x3/uL (0.0-0.7); %Basophils 0.1 % (0.0-1.0); %Eosinophils 0.1 % (0.0-10.0); %Lymphocytes 18.6 % (21.0-51.0); %Monocytes 9.6 % (0.0-10.0); %Neutrophils 71.3 % (42.0-75.0); Hematocrit 32.1 % (36.0-47.0); Hemoglobin 10.7 g/dL (12.0-16.0); Mean Corpuscular HGB CONC 33.3 g/dL (32.0-36.0); Mean Corpuscular Hemoglobin 28.2 pg (27.0-31.0); Mean Corpuscular Volume 84.7 fL (78.0-98.0); Mean Platelet Volume 10.9 fL (7.4-10.4); Platelet Count 193 10x3/uL (130-400); Red Blood Cell (RBC) Count 3.79 mill/uL (4.20-5.40)
[2023-10-10 01:38] LABS: ALT (SGPT) 31 U/L (8-55); AST (SGOT) 62 U/L (5-34); Albumin 3.3 g/dL (3.5-5.0); Alkaline Phosphatase 69 U/L (40-110); Anion Gap 12 mmol/L (10-20); BUN (Urea Nitrogen) 15 mg/dL (7.0-18.7); Bilirubin, Total 0.7 mg/dL (0.2-1.2); Calc. Creatinine Clearance 0 mL/min (70-130); Calcium 9.2 mg/dL (7.8-10.44); Carbon Dioxide 18 mmol/L (22-29); Chloride 105 mmol/L (98-107); Estimated GFR 49; Globulin 5.3 g/dL (2.4-3.5); Glucose 89 mg/dL (70-105); Potassium 3.2 mmol/L (3.5-5.1); Protein, Total 8.6 g/dL (6.0-8.3); Sodium 132 mmol/L (136-145)
[2023-10-10 01:40] LABS: BHCG - Serum Negative (NEGATIVE); Pregs Control Background? CLEAR/WHITE (CLR/WHITE); Pregs Control Bar Appear? YES (CONTROL BAR)
[2023-10-10 01:41] LABS: Troponin I 0.038 ng/mL (< 0.028)
[2023-10-10] MEDS ORDERED: Aspirin Chewable 81 MG TAB ONE (02:25)
[2023-10-10] MEDS ORDERED: Labetalol HCl 100 MG/20 ML VIAL ONE ×2 (02:43→03:33)
[2023-10-10] MEDS ORDERED: Ondansetron ODT 4 MG TAB SL PRN (04:00)
[2023-10-10] MEDS ORDERED: Acetaminophen 325 MG TAB PO PRN ×2 (04:00→04:50)
[2023-10-10] MEDS ORDERED: Ondansetron PF 4 MG/2 ML Vial IVP PRN ×2 (04:00→04:50)
[2023-10-10] MEDS ORDERED: niCARdipine 25 MG/10 ML SDV ONE (04:22)
[2023-10-10] MEDS ORDERED: Acetaminophen 650 MG Suppository PR PRN (04:50)
[2023-10-10] MEDS ORDERED: Ondansetron ODT 4 MG TAB PO PRN (04:50)
[2023-10-10 05:05] LABS: Troponin I 0.026 ng/mL (< 0.028)
[2023-10-10] MEDS ORDERED: hydrALAZINE 20 MG/ML VIAL SLOW IVP PRN (05:16)
[2023-10-10 06:30] VITALS: BMI 27.6
[2023-10-10 06:40] LABS: Amphetamine Not Detected (NotDetected); Barbiturates Screen Not Detected (NotDetected); Benzodiazepine Screen Not Detected (NotDetected); Cocaine Metabolite Screen Not Detected (NotDetected); Methadone Not Detected (NotDetected); Methamphetamine Not Detected (NotDetected); Opiate Screen Not Detected (NotDetected); Oxycodone Screen Not Detected (NotDetected); Phencyclidine (PCP) Not Detected (NotDetected); THC/Cannabinoid Screen Detected (NotDetected); Tricyclic Screen Not Detected (NotDetected)
[2023-10-10 07:14] LABS: Troponin I 0.031 ng/mL (< 0.028)
[2023-10-10] MEDS: hydrALAZINE 25 MG TAB PO SCH (08:00)
[2023-10-10] MEDS: Famotidine/PF 20 mg/2ml Vial SLOW IVP SCH (08:00)
[2023-10-10] MEDS: Losartan 25 MG TAB PO SCH (08:05)
[2023-10-10] MEDS: Famotidine 20 MG TAB PO SCH (08:05)
[2023-10-10] MEDS: NIFEdipine XL 90 MG ER.TAB PO SCH (08:05)
[2023-10-10] MEDS: Labetalol HCl 100 MG TAB PO SCH (08:05)
[2023-10-10] MEDS: Spironolactone 25 MG TAB PO SCH (08:05)
[2023-10-10] MEDS: niCARdipine 25 MG in Sodium Chloride 0.9% 250 ML 250 ML IVPB SCH (08:25)
[2023-10-10] MEDS: Potassium Chloride 20 MEQ TAB PO SCH (08:30)
[2023-10-10] MEDS: metroNIDAZOLE 500 MG TAB PO SCH (08:30)
[2023-10-10 11:00] LABS: CK (CPK) 1336 U/L (29-168); Magnesium 1.8 mg/dL (1.6-2.6)
[2023-10-10 14:28] LABS: GC by PCR, Vaginal Swab Not Detected (NotDetected)
[2023-10-10] MEDS: Labetalol HCl 100 MG/20 ML VIAL SLOW IVP PRN (15:20)
[2023-10-10] MEDS: Rosuvastatin 20 MG TAB PO SCH (20:22)
[2023-10-11 03:46] LABS: #Basophils Less than 0.03 10x3/uL (0.0-0.2); #Eosinphils Less than 0.03 10x3/uL (0.0-0.7); %Basophils 0.1 % (0.0-1.0); %Eosinophils 0.2 % (0.0-10.0); %Lymphocytes 12.4 % (21.0-51.0); %Monocytes 10.4 % (0.0-10.0); %Neutrophils 76.7 % (42.0-75.0); Hematocrit 33.4 % (36.0-47.0); Hemoglobin 11.1 g/dL (12.0-16.0); Mean Corpuscular HGB CONC 33.2 g/dL (32.0-36.0); Mean Corpuscular Hemoglobin 28.1 pg (27.0-31.0); Mean Corpuscular Volume 84.6 fL (78.0-98.0); Mean Platelet Volume 11.1 fL (7.4-10.4); Platelet Count 209 10x3/uL (130-400); RBC Distribution Width 14.1 % (11.5-14.5); Red Blood Cell (RBC) Count 3.95 mill/uL (4.20-5.40)
[2023-10-11 04:18] LABS: CK (CPK) 1005 U/L (29-168)
[2023-10-11 04:24] LABS: Anion Gap 13 mmol/L (10-20); BUN (Urea Nitrogen) 12 mg/dL (7.0-18.7); Calc. Creatinine Clearance 85 mL/min (70-130); Carbon Dioxide 19 mmol/L (22-29); Chloride 109 mmol/L (98-107); Potassium 3.7 mmol/L (3.5-5.1); Sodium 137 mmol/L (136-145)
[2023-10-11 04:25] LABS: Calcium 9.3 mg/dL (7.8-10.44); Estimated GFR 66; Glucose 94 mg/dL (70-105)
[2023-10-11] MEDS: NIFEdipine XL 60 MG ER.TAB PO SCH (08:05)
[2023-10-11] MEDS: Losartan 25 MG TAB PO SCH (08:55)
[2023-10-11 11:51] VITALS: BP 165/119
[2023-10-11 12:29] VITALS: TEMP 98.1
[2023-10-11] MEDS: Labetalol HCl 100 MG TAB PO SCH (14:45)
[2023-10-12] MEDS ORDERED: Losartan 25 MG TAB PO SCH (09:00)
== END 2023-10-11 17:45 | disposition home or self-care (01) | DRG 305 ==
LOC: ERS 20:59 → CCU 10-10 05:29 → OBSVTOIN 10-10 05:29
PROVIDERS: ADMIT Student in an Organized Health Care Education/Training Program; ATTEND Family Medicine
DX: I16.1 Hypertensive emergency (principal); I24.89 Other forms of acute ischemic heart disease; I12.9 Hypertensive chronic kidney disease with stage 1 through stage 4 chronic kidney disease, or unspecified chronic kidney disease; F17.210 Nicotine dependence, cigarettes, uncomplicated; E87.6 Hypokalemia; N18.30 Chronic kidney disease, stage 3 unspecified; Z79.899 Other long term (current) drug therapy; Z86.73 Personal history of transient ischemic attack (TIA), and cerebral infarction without residual deficits; Z98.890 Other specified postprocedural states; F12.90 Cannabis use, unspecified, uncomplicated; N76.0 Acute vaginitis
CPT/HCPCS: 36415; 76770; 80048; 80053; 80306; 81001; 81025; 82550; 83735; 84443; 84484; 84703; 85025; 87480; 87510; 87591; 87660; 93005; 93306; 93975; J0360; J7050

== ENCOUNTER 2024-03-20 08:40 | Inpatient (IN) | payer OTHER, SELFPAY ==
[2024-03-20] MEDS ORDERED: Nitroglycerin 2% Ointment 1 INCH/1 GM Packet ONE (08:49)
[2024-03-20] MEDS ORDERED: Labetalol HCl 100 MG/20 ML VIAL ONE (08:59)
[2024-03-20] MEDS ORDERED: Acetaminophen 500 MG TAB ONE (09:20)
[2024-03-20 09:28] LABS: #Basophils Less than 0.03 10x3/uL (0.0-0.2); #Eosinophils Less than 0.03 10x3/uL (0.0-0.7); %Basophils 0.1 % (0.0-1.0); %Eosinophils 0.1 % (0.0-10.0); %Lymphocytes 18.8 % (21.0-51.0); %Monocytes 6.3 % (0.0-10.0); %Neutrophils 74.4 % (42.0-75.0); Hematocrit 39.2 % (36.0-47.0); Hemoglobin 12.8 g/dL (12.0-16.0); Mean Corpuscular HGB CONC 32.7 g/dL (32.0-36.0); Mean Corpuscular Hemoglobin 28.8 pg (27.0-31.0); Mean Corpuscular Volume 88.1 fL (78.0-98.0); Mean Platelet Volume 12.1 fL (7.4-10.4); Platelet Count 189 10x3/uL (130-400); RBC Distribution Width 15.9 % (11.5-14.5); Red Blood Cell (RBC) Count 4.45 mill/uL (4.20-5.40)
[2024-03-20] MEDS ORDERED: Ondansetron PF 4 MG/2 ML Vial ONE (09:32)
[2024-03-20] MEDS ORDERED: Lorazepam 2 MG/ML VIAL ONE (09:35)
[2024-03-20] MEDS ORDERED: levETIRAcetam 500 MG (5 mL) VIAL ONE (09:38)
[2024-03-20 09:44] LABS: BHCG - Serum Negative (NEGATIVE); Pregs Control Background? CLEAR/WHITE (CLR/WHITE); Pregs Control Bar Appear? YES (CONTROL BAR)
[2024-03-20] MEDS ORDERED: niCARdipine 25 MG/10 ML SDV ONE (09:45)
[2024-03-20 10:08] LABS: ALT (SGPT) 18 U/L (8-55); AST (SGOT) 38 U/L (5-34); Albumin 3.5 g/dL (3.5-5.0); Alkaline Phosphatase 75 U/L (40-110); Anion Gap 19 mmol/L (10-20); BUN (Urea Nitrogen) 9 mg/dL (7.0-18.7); Bilirubin, Total 0.9 mg/dL (0.2-1.2); Calc. Creatinine Clearance 0 mL/min (70-130); Calcium 9.5 mg/dL (7.8-10.44); Carbon Dioxide 14 mmol/L (22-29); Chloride 107 mmol/L (98-107); Estimated GFR 61; Globulin 6.5 g/dL (2.4-3.5); Glucose 120 mg/dL (70-105); Magnesium 1.8 mg/dL (1.6-2.6); Potassium 3.7 mmol/L (3.5-5.1); Sodium 136 mmol/L (136-145)
[2024-03-20 10:09] LABS: Acetaminophen Less than 10 mcg/mL (Less than 10); Alcohol Less than 10.0 mg/dL (Less than 10); Salicylate Less than 8.0 mg/dL (Less than 8.0)
[2024-03-20 10:31] LABS: Troponin I 0.036 ng/mL (< 0.028)
[2024-03-20] MEDS ORDERED: Ondansetron PF 4 MG/2 ML Vial IVP PRN (11:56)
[2024-03-20] MEDS ORDERED: Lorazepam 2 MG/ML VIAL SLOW IVP PRN (12:00)
[2024-03-20 12:28] VITALS: BMI 27.2
[2024-03-20] MEDS: Sodium Chloride 0.9% 1,000 ML IV SCH (13:13)
[2024-03-20 16:05] LABS: Troponin I 0.032 ng/mL (< 0.028)
[2024-03-20 17:12] LABS: Amphetamine Not Detected (NotDetected); Barbiturates Screen Not Detected (NotDetected); Benzodiazepine Screen Detected (NotDetected); Cocaine Metabolite Screen Not Detected (NotDetected); Methadone Not Detected (NotDetected); Methamphetamine Not Detected (NotDetected); Opiate Screen Not Detected (NotDetected); Oxycodone Screen Not Detected (NotDetected); Phencyclidine (PCP) Not Detected (NotDetected); THC/Cannabinoid Screen Detected (NotDetected); Tricyclic Screen Not Detected (NotDetected)
[2024-03-20] MEDS: niCARdipine 25 MG in Sodium Chloride 0.9% 250 ML 250 ML IVPB SCH (17:42)
[2024-03-20] MEDS ORDERED: Labetalol HCl 100 MG/20 ML VIAL SLOW IVP PRN (20:00)
[2024-03-20] MEDS ORDERED: hydrALAZINE 20 MG/ML VIAL SLOW IVP PRN (20:00)
[2024-03-20] MEDS: Labetalol HCl 100 MG TAB PO SCH (21:23)
[2024-03-20 21:24] VITALS: BP 183/110
[2024-03-20] MEDS: hydrALAZINE 25 MG TAB PO SCH (21:24)
[2024-03-20] MEDS: Famotidine/PF 20 mg/2ml Vial SLOW IVP SCH (21:24)
[2024-03-21 06:28] LABS: #Basophils Less than 0.03 10x3/uL (0.0-0.2); #Eosinophils Less than 0.03 10x3/uL (0.0-0.7); %Basophils 0.1 % (0.0-1.0); %Eosinophils 0.1 % (0.0-10.0); %Lymphocytes 16.1 % (21.0-51.0); %Monocytes 9.7 % (0.0-10.0); %Neutrophils 73.8 % (42.0-75.0); Hematocrit 33.2 % (36.0-47.0); Mean Corpuscular HGB CONC 33.1 g/dL (32.0-36.0); Mean Corpuscular Hemoglobin 28.1 pg (27.0-31.0); Mean Corpuscular Volume 84.7 fL (78.0-98.0); Mean Platelet Volume 12.4 fL (7.4-10.4); Platelet Count 193 10x3/uL (130-400); RBC Distribution Width 15.6 % (11.5-14.5); Red Blood Cell (RBC) Count 3.92 mill/uL (4.20-5.40)
[2024-03-21 06:46] LABS: Anion Gap 12 mmol/L (10-20); BUN (Urea Nitrogen) 10 mg/dL (7.0-18.7); Calc. Creatinine Clearance 83 mL/min (70-130); Calcium 8.5 mg/dL (7.8-10.44); Carbon Dioxide 20 mmol/L (22-29); Chloride 109 mmol/L (98-107); Estimated GFR 70; Glucose 91 mg/dL (70-105); Sodium 138 mmol/L (136-145)
[2024-03-21] MEDS: NIFEdipine XL 90 MG ER.TAB PO SCH (08:09)
[2024-03-21] MEDS: Losartan 25 MG TAB PO SCH (08:10)
[2024-03-21] MEDS: Enoxaparin 40 MG (0.4 mL) SYRINGE SC SCH (08:11)
[2024-03-21 09:49] VITALS: TEMP 98.9
[2024-03-21] MEDS ORDERED: Electrolyte Replacement Protocol FS PRN (12:45)
[2024-03-21] MEDS ORDERED: Electrolyte Replacement Protocol 1 EACH FS SCH (12:45)
[2024-03-21] MEDS: Potassium Chloride 20 MEQ TAB PO SCH (13:37)
[2024-03-21] MEDS ORDERED: Magnesium 2 GM/50 ML(in water) 2 GM in Premix 1 BAG IVPB SCH (14:00)
== END 2024-03-21 13:03 | disposition left against medical advice (07) | DRG 280 ==
LOC: ERS 08:40 → CCU 10:43
PROVIDERS: ADMIT Internal Medicine; ATTEND Internal Medicine
DX: I16.1 Hypertensive emergency (principal); G93.41 Metabolic encephalopathy; I21.A1 Myocardial infarction type 2; I67.4 Hypertensive encephalopathy; E87.20 Acidosis, unspecified; F12.10 Cannabis abuse, uncomplicated; N18.31 Chronic kidney disease, stage 3a; E87.6 Hypokalemia; F17.200 Nicotine dependence, unspecified, uncomplicated; Z79.899 Other long term (current) drug therapy
CPT/HCPCS: 36415; 70450; 71045; 80048; 80053; 80306; 80307; 83735; 83880; 84146; 84443; 84484; 84703; 85025; 93005; 96365; 96366; 96375; 99292; J1650; J1953; J2060; J2405; J3490; J7030; J7050